=== PATIENT | male | born 1970 | race Caucasian/White ===

== ENCOUNTER 2021-03-17 08:31 | Emergency (ER) | payer SELFPAY ==
[2021-03-17 08:44] VITALS: BP 163/102; PULSE 103; RESP 18; TEMP 36.4; O2SAT 95
[2021-03-17 08:50] VITALS: BP 166/105; BP 177/102; BP 179/109; PULSE 106; PULSE 109; PULSE 110
--- NOTE | 2021-03-17 08:57 | ED.GIBLEED ---
HPI - GI Bleed General Chief complaint: GI Bleed Stated complaint: rectal bleeding Time Seen by Provider: 03/17/21 08:34 Source: patient and RN notes reviewed Mode of arrival: ambulatory Limitations: no limitations History of Present Illness HPI Narrative: This is a 51 year old male who presents for evaluation of rectal bleeding. Patient states this morning he went to have a bowel movement and he passed a lot of blood in toilet. He is unsure if he passed any stool. He states he has had to change his underwear twice because he is still passing blood per rectum. He denies rectal pain or abdominal pain. He state his is lightheaded. He states something similar happened 1 month ago but he did not pass this much blood. He used hemorrhoid cream at that time so he his symptoms resolved. He denies history of hemorrhoids. He states he has had 2 colonoscopies in the past for evaluation bloody stools. Related Data Allergies Allergy/AdvReac Type Severity Reaction Status Date / Time No Known Allergies Allergy Verified 03/17/21 09:27 Review of Systems Review of Systems: All systems reviewed & are unremarkable except as noted in HPI and below PMFSH Past Medical History Medical History (Updated 03/17/21 @ 10:13 by Nisreen Chen MD) No significant medical problems Surgical History Surgical History (Updated 03/17/21 @ 09:10 by Nisreen Chen MD) History of appendectomy Family History Family History (Updated 07/21/16 @ 15:22 by DOCTOR UNKNOWN) Mother Diabetes mellitus Social History Social History Smoking status: Never smoker Alcohol intake: never Exam Const: General: no acute distress and alert Orientation/consciousness: patient oriented x3 Eyes: EOM: EOMs intact bilaterally Chest: Chest palpation & inspection: normal inspection of the chest Resp: Effort & Inspection: normal respiratory effort and no retractions Auscultation: clear to auscultation bilaterally GI: GI Palp: Yes Soft to palpation, No Tenderness to palpation present (GI) and No Guarding due to palpation present (GI) Auscultation: normal bowel sounds Rectal Exam: normal sphincter tone and hemorrhoids (internal) Other: no active bleeding, small clot around anus but no visible external hemorrhoid Skin: General skin exam: normal color Rashes: no rashes Neuro: General: patient oriented x3, moves all extremities and CN's II-XI intact bilaterally Course Reevaluation(s) Reevaluation #1: I discussed with patient that hemoglobin is normal and he is not bleeding. On examination, I felt a hemorrhoid which is likely cause of his bleeding. I discussed with patient discharge plan. Date: 03/17/21 Time: 10:08 Vital Signs Vital signs: Vital Signs Temperature 97.6 F 03/17/21 08:44 Pulse Rate 103 H 03/17/21 08:44 Respiratory Rate 18 03/17/21 08:44 Blood Pressure 163/102 H 03/17/21 08:44 Pulse Oximetry 95 03/17/21 08:44 Temperature 97.6 F 03/17/21 08:44 Pulse Rate 79 03/17/21 10:22 Respiratory Rate 18 03/17/21 10:22 Blood Pressure 158/113 H 03/17/21 10:22 Pulse Oximetry 100 03/17/21 10:22 MDM - GI Bleed Medical Records Attestation: I reviewed the patient's medical records. Lab Data Attestation: I reviewed the patient's lab results. Result diagrams: 03/17/21 09:20 03/17/21 09:20 Labs: Lab Results 03/17/21 03/17/21 03/17/21 Range/Units 09:20 09:20 09:20 WBC 10.9 H (4.5-10.0) K/mm3 RBC 4.97 (4.6-6.20) M/mm3 Hgb 15.7 (14.0-18.0) g/dL Hct 44.5 (42.0-52.0) % MCV 89.5 (80-100) fl MCH 31.6 (26-34) pg MCHC 35.3 (32-36) g/dl RDW 12.6 (11.5-14.5) % Plt Count 308 (150-375) k/mm3 MPV 9.9 (7.4-10.4) fl Immature Gran % (Auto) 0.5 (0-0.5) % Neut % (Auto) 76.0 H (45.5-73.1) % Lymph % (Auto) 15.8 L (18.3-44.2) % Carson % (Auto) 5.2 (2.6-8.5) % Eos % (Auto) 1.9 (0-4.4) % Baso % (Auto) 0.6 (0.2-
[2021-03-17 09:28] LABS: Basophils Absolute Auto 0.1 K/mm3 (0.0-0.1); Basophils Percent Auto 0.6 % (0.2-1.2); Eosinophils Absolute Auto 0.2 K/mm3 (0-0.3); Eosinophils Percent Auto 1.9 % (0-4.4); Hematocrit 44.5 % (42.0-52.0); Hemoglobin 15.7 g/dL (14.0-18.0); Immature Granulocyte Absolute 0.06 K/mm3 (0.00-0.031); Immature Granulocyte Percent A 0.5 % (0-0.5); Lymphocytes Absolute Auto 1.72 K/mm3 (0.9-3.2); Lymphocytes Percent Auto 15.8 % (18.3-44.2); Mean Corpuscular HGB Conc 35.3 g/dl (32-36); Mean Corpuscular Hemoglobin 31.6 pg (26-34); Mean Corpuscular Volume 89.5 fl (80-100); Mean Platelet Volume 9.9 fl (7.4-10.4); Monocytes Absolute Auto 0.6 K/mm3 (0.1-0.6); Monocytes Percent Auto 5.2 % (2.6-8.5); Neutrophils Absolute Auto 8.3 K/mm3 (1.3-6.7); Platelet Count Result 308 k/mm3 (150-375); Red Blood Count 4.97 M/mm3 (4.6-6.20); Red Cell Distribution Width 12.6 % (11.5-14.5); White Blood Count 10.9 K/mm3 (4.5-10.0)
[2021-03-17 09:37] LABS: INR 0.9; Partial Thromboplastin Time 28.1 SECONDS (22.3-36.8); Prothrombin Time 12.1 Seconds (11.1-14.7)
[2021-03-17 09:42] LABS: Alanine Aminotransferase 29 U/L (4-50); Albumin Level 5.3 g/dL (3.5-5.1); Alkaline Phosphatase 80 U/L (38-126); Anion Gap 14 mmol/L (8-16); Aspartate Amino Transferase 26 U/L (17-59); Bilirubin,Total 2.2 mg/dL (0.2-1.3); Blood Urea Nitrogen 12 mg/dL (9-20); Carbon Dioxide 23 mmol/L (22-30); Chloride 106 mmol/L (98-107); Estimated CRCL calculation 101 ml/min; Estimated Glomerular Filt Rate > 60; Glucose 104 mg/dL (65-110); Potassium 3.5 mmol/L (3.4-5.0); Sodium 143 mmol/L (137-145)
[2021-03-17 10:22] VITALS: BP 158/113; PULSE 79; RESP 18; O2SAT 100
== END 2021-03-17 10:28 | disposition home or self-care (01) ==
PROVIDERS: Emergency Provider General Practice
DX: K64.9 Unspecified hemorrhoids (principal); K62.5 Hemorrhage of anus and rectum
CPT/HCPCS: 36415; 80053; 85025; 85610; 85730; 86850; 86900; 86901; 99283